=== PATIENT | female | born 1990 | race Caucasian/White ===

== ENCOUNTER 2017-03-16 18:18 | Inpatient (IN) ==
[2017-03-16 19:49] LABS: Amphetamine Screen,Urine Negative ng/mL (Cutoff=1000); Barbiturate Screen,Urine Negative ng/mL (Cutoff=200); Benzodiazepines Screen,Urine Negative ng/mL (Cutoff=200); Cannabinoid Screen,Urine Negative ng/mL (Cutoff = 50); Cocaine Screen,Urine Negative ng/mL (Cutoff= 300); Opiate Screen,Urine Negative ng/mL (Cutoff=300); Phencyclidine Screen,Urine Negative ng/mL (Cutoff=25)
[2017-03-16 19:57] LABS: Basophils # 0.1 K/mcL (0.0-0.2); Basophils % 0.6 %; Eosinophils # 0.1 K/mcL (0.0-0.6); Eosinophils % 0.8 %; Hematocrit 41.8 % (35.3-44.9); Immature Granulocytes % 0.9 % (0-4); Lymphocytes # 2.9 K/mcL (0.6-4.6); Lymphocytes % 22.6 %; Mean Corpuscular HGB Conc 31.1 g/dL (31.6-35.5); Mean Corpuscular Hemoglobin 25.3 pg (28.0-33.3); Mean Corpuscular Volume 81.5 fL (83.0-100.0); Mean Platelet Volume 10.4 fL (9.4-12.4); Monocytes # 0.6 K/mcL (0.0-1.3); Monocytes % 4.9 %; Neutrophils # 8.9 K/mcL (1.6-8.9); Platelet Count 338 K/mcL (140-400); Red Blood Count 5.13 M/mcL (3.82-4.97); Red Cell Distribution Width 15.9 % (11.5-14.5); Segmented Neutrophils % 70.2 %
[2017-03-16 20:08] LABS: Acetaminophen < 1.0 mcg/mL (10-30); BUN/Creatinine Ratio 9 (6-26); Blood Urea Nitrogen 7 mg/dL (7-20); Carbon Dioxide 23 mEq/L (19-29); Chloride 110 mEq/L (98-109); Ethanol < 10 mg/dL (0-10); Glucose 109 mg/dL (70-99); Osmolality,Calculated 287 (280-300); Potassium 3.4 mEq/L (3.5-4.5); Salicylate < 5.0 mg/dL (15-30); Sodium 139 mEq/L (136-145); eGFR For African Americans > 60 (> 60); eGFR For Non-African Americans > 60 (> 60)
--- NOTE | 2017-03-16 21:39 | Emergency Department Note ---
Disposition Clinical Impression: Suicidal ideations Disposition: Home, Self-Care Condition: Good Referrals: NO,PCP [Primary Care Provider] - Forms: ED Satisfaction Letter General Adult HPI - General Chief complaint: ED Psychiatric Symptoms Stated complaint: SI Time Seen by Provider: 03/16/17 18:38 Source: patient Limitations: no limitations Nursing Notes Reviewed: Yes Vital Signs Reviewed: Yes - History of Present Illness HPI Narrative: This is a 26-year-old female with a history of ongoing psychiatric problems. She recently changed her psychiatric medications including increasing her dose of Prozac and starting with 2 day and now has increasing suicidal ideations. She has a plan of cutting herself at home. She has had self-injurious behavior in the past. She has no ingestion currently. She is not intoxicated. Her affect is normal. She is cooperative. Pain Scale: 0 - Related Data Previous Rx's Medication Instructions Recorded Ondansetron ODT [Zofran ODT] 4 mg SL Q8HR #20 tab.rapdis 11/11/15 Allergies Allergy/AdvReac Type Severity Reaction Status Date / Time No Known Allergies Allergy Verified 11/11/15 11:23 All systems ED: reviewed and negative except as stated. Past Medical History - Past Medical History Medical history: Reports: no medical history Psychiatric history: Reports: anxiety, bipolar, depression [employer] HISTORY history: Reports: other - Social History Smoking Status: Never smoker Smokeless Tobacco Status: No Alcohol use: Reports: none Drug use: Reports: none Physical Exam - General Limitations: no limitations General appearance: alert - Head Head exam: atraumatic - Eye Eye exam: Present: normal appearance - ENT ENT exam: normal exam - Neck Neck exam: Present: normal inspection, full ROM - Chest Chest inspection: Present: normal inspection - Respiratory Respiratory exam: Present: normal lung sounds bilaterally - Cardiovascular Cardiovascular exam: Present: regular rate, normal rhythm - Abdominal Exam Abdominal exam: Present: soft, Non-Tender - Extremities Exam Extremities exam: Present: normal inspection, full ROM - Expanded Lower Extremity Exam Hip/Pelvis exam: Present: normal inspection, full ROM Upper leg exam: Present: normal inspection, full ROM Knee exam: Present: normal inspection, full ROM Lower leg exam: Present: normal inspection, full ROM Ankle exam: Present: normal inspection, full ROM Foot/toe exam: Present: normal inspection, full ROM Gait: observed and normal - Back Exam Back exam: Present: normal inspection - Neurological Exam Neurological exam: Present: alert, oriented X3, CN II-XII intact - Psychiatric Psychiatric exam: Present: normal affect, normal mood - Skin Skin exam: Present: warm, dry Course Vital Signs Temperature 98.6 F 03/16/17 18:20 Pulse Rate 110 03/16/17 18:20 Respiratory Rate 18 03/16/17 18:20 Blood Pressure 147/89 03/16/17 18:20 O2 Sat by Pulse Oximetry 97 03/16/17 18:20 Temperature 98.6 F 03/16/17 18:20 Pulse Rate 110 03/16/17 18:20 Respiratory Rate 18 03/16/17 18:20 Blood Pressure 147/89 03/16/17 18:20 O2 Sat by Pulse Oximetry 97 03/16/17 18:20 Oxygen Delivery Oxygen Delivery Room Air Medical Decision Making - Medical Records Medical records reviewed: Yes I reviewed the patient's medical records. - Lab Data Lab results reviewed: Yes I reviewed the patient's lab results. Result diagrams: 03/16/17 19:46 03/16/17 19:46 Lab Results 03/16/17 03/16/17 03/16/17 Range/Units 19:21 19:46 19:46 WBC 12.7 H (4.3-11.1) K/mcL RBC 5.13 H (3.82-4.97) M/mcL Hgb 13.0 (11.5-15.4) g/dL Hct 41.8 (35.3-44.9) % MCV 81.5 L (83.0-100.0) fL MCH 25.3 L (28.0-33.3) pg MCHC 31.1 L (31.6-35.5) g/dL RDW 15.9 H (11.5-14.5) % Plt Count 338 (140-400) K/mcL MPV 10.4 (9.4-12.4) fL Immature Gran % 0.9 (0-4) % Seg Neutrophils % 70.2 % Lymphocytes % 22.6 % Monocytes % 4.9 % Eosinophils % 0.8 % Basophils % 0.6 % Neutrophils # 8.9 (1.6-8.9) K/mcL Lymphocytes # 2.9 (0.6-4.6) K/mcL Monocytes # 0.6 (0.0-1.3) K/mcL Eosinophils # 0.1 (0.0-0.6) K/mcL Basophils # 0.1 (0.0-0.2) K/mcL Sodium 139 (136-145) mEq/L Potassium 3.4 L (3.5-4.5) mEq/L Chloride 110 H (98-109) mEq/L Carbon Dioxide 23 (19-29) mEq/L BUN 7 (7-20) mg/dL Creatinine 0.78 (0.57-1.11) mg/dL Est GFR ( Amer) > 60 (> 60) Est GFR (Non-Af Amer) > 60 (> 60) BUN/Creatinine Ratio 9 (6-26) Glucose 109 H (70-99) mg/dL Calculated Osmolality 287 (280-300) Calcium 9.0 (8.6-10.8) mg/dL Salicylates < 5.0 L (15-30) mg/dL Urine Opiates Screen Negative (Qggiwi=841) ng/mL Acetaminophen < 1.0 L (10-30) mcg/mL Ur Barbiturates Screen Negative (Qjgqgp=278) ng/mL Ur Phencyclidine Scrn Negative (Cutoff=25) ng/mL Ur Amphetamines Screen Negative (Yhzhsq=7015) ng/mL U Benzodiazepines Scrn Negative (Mtovbr=511) ng/mL Urine Cocaine Screen Negative (Cutoff= 300) ng/mL U Marijuana (THC) Screen Negative (Cutoff = 50) ng/mL Ethyl Alcohol < 10 (0-10) mg/dL
[2017-03-16] MEDS ORDERED: Mag Hydrox/Al Hydrox/Simeth 30 ML UDC PO PRN (23:22)
[2017-03-16] MEDS ORDERED: MOM Conc 10 ML UD.LIQ PO PRN (23:22)
[2017-03-16] MEDS ORDERED: Acetaminophen 325 MG TABLET PO PRN (23:22)
[2017-03-16] MEDS ORDERED: *HR* LORazepam 2 MG/ML VIAL IM PRN (23:22)
[2017-03-16] MEDS ORDERED: traZODone 50 MG TABLET PO PRN (23:22)
[2017-03-16] MEDS ORDERED: *HR* LORazepam 1 MG TABLET PO PRN (23:22)
[2017-03-16] MEDS ORDERED: Haloperidol Lactate 5 MG/ML VIAL IM PRN (23:22)
[2017-03-16] MEDS ORDERED: *HR* LORazepam 0.5 MG TABLET PO PRN (23:24)
[2017-03-17] MEDS: Topiramate 25 MG TABLET PO SCH ×3 (08:11→20:44)
--- NOTE | 2017-03-17 09:54 | Psychiatry History & Physical ---
Date of Encounter: 03/17/17 Time of Encounter: 09:30 History of Present Illness Patient Stated Chief Complaint: Suicidal ideation Medicare Admission Attestation: For traditional Medicare patients the provided hospital inpatient services are reasonable and necessary and in the case of services not specified as inpatient -only under 42 CFR 419.22 (n), that they are appropriately provided as inpatient services in accordance 42 CFR 412.3. For Critical [facility] the patient may reasonably be expected to be discharged or transferred to a hospital within 96 hours after admission to the Critical [facility] Hospital. Admitted From: Emergency Dept History of Present Illness: Ms. Sibley is a 26 year old female admitted from the emergency department for having suicidal ideation. Patient reports she had recent medication changes her Prozac was increased from 20-40 and look toward was added patient response to medication changes with increasing depression and irritability and having suicidal thoughts. Patient is under care at [facility] for therapy and medication management. Patient has been treated for depression and bipolar disorder since age 20, her medication was prescribed by PCP and she was seen by a psychologist or therapist. Patient reports increased irritability more swings and increasing anxiety and having suicidal thoughts. She denies having any problem with sleep. 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 She denies any use of alcohol drugs. Family history is positive for mother's bipolar. Past Med Surg Social Fam HX - Past Medical History Medical history: no medical history - Past Psychiatric History Psychiatric history: Reports: anxiety, bipolar. Denies: previous psychiatric hospitalization - Social History Smoking Status: Never smoker Smokeless Tobacco Status: No Alcohol use: none Drug use: none Medications & Allergies Ergocalciferol (VITAMIN D2) [Vitamin D2] 1.25 mg PO QWEEK 03/16/17 [History] FLUoxetine HCl [Fluoxetine HCl] 40 mg PO DAILY 03/16/17 [History] LORazepam [Ativan] 0.5 mg PO DAILY 03/16/17 [History] Lurasidone [Latuda] 20 mg PO DAILY 03/16/17 [History] Metformin HCl [Metformin HCl ER] 1,000 mg PO QPM 03/16/17 [History] Topiramate [Topamax] 50 mg PO TID 03/16/17 [History] Allergies No Known Allergies Allergy (Verified 11/11/15 11:23) Review of Systems Psychiatric: Reports: depression, suicidal ideation, irritability, mood swings Mental Status Exam Patient orientation: Yes Person, Yes Time, Yes Place Level of alertness: Alert Patient appearance: Appropriate, Well Groomed, Obese Behavior: calm, cooperative, anxious Psychomotor activity: Normal Eye contact: Maintains Eye Contact Mood description: Anxious, Labile Affect description: congruent with mood, labile, anxious Speech pattern: Normal rate, Normal rhythm, Normal tone Speech volume: Normal Thought process: Linear, Goal Oriented Thought content: No Suicidal ideation, No Homicidal ideation, No Overt delusions Perceptual disturbances: No Auditory hallucinations, No Visual hallucinations Attention span: Capable of Focused Attention Memory description: Grossly Intact Patient reliability: Reliable Historian Intelligence estimate: Average Judgment: Limited Insight: Partial Results - Vital Signs Vital signs: Temp Pulse Resp BP Pulse Ox 98.2 F 75 18 128/79 97 03/17/17 09:00 03/17/17 09:00 03/17/17 09:00 03/17/17 09:00 03/16/17 18:20 - Labs Labs: Laboratory Last Values WBC 12.7 K/mcL (4.3-11.1) H 03/16/17 19:46 RBC 5.13 M/mcL (3.82-4.97) H 03/16/17 19:46 Hgb 13.0 g/dL (11.5-15.4) 03/16/17 19:46 Hct 41.8 % (35.3-44.9) 03/16/17 19:46 MCV 81.5 fL (83.0-100.0) L 03/16/17 19:46 MCH 25.3 pg (28.0-33.3) L 03/16/17 19:46 MCHC 31.1 g/dL (31.6-35.5) L 03/16/17 19:46 RDW 15.9 % (11.5-14.5) H 03/16/17 19:46 Plt Count 338 K/mcL (140-400) 03/16/17 19:46 MPV 10.4 fL (9.4-12.4) 03/16/17 19:46 Immature Gran % 0.9 % (0-4) 03/16/17 19:46 Seg Neutrophils % 70.2 % 03/16/17 19:46 Lymphocytes % 22.6 % 03/16/17 19:46 Monocytes % 4.9 % 03/16/17 19:46 Eosinophils % 0.8 % 03/16/17 19:46 Basophils % 0.6 % 03/16/17 19:46 Neutrophils # 8.9 K/mcL (1.6-8.9) 03/16/17 19:46 Lymphocytes # 2.9 K/mcL (0.6-4.6) 03/16/17 19:46 Monocytes # 0.6 K/mcL (0.0-1.3) 03/16/17 19:46 Eosinophils # 0.1 K/mcL (0.0-0.6) 03/16/17 19:46 Basophils # 0.1 K/mcL (0.0-0.2) 03/16/17 19:46 Sodium 139 mEq/L (136-145) 03/16/17 19:46 Potassium 3.4 mEq/L (3.5-4.5) L 03/16/17 19:46 Chloride 110 mEq/L (98-109) H 03/16/17 19:46 Carbon Dioxide 23 mEq/L (19-29) 03/16/17 19:46 BUN 7 mg/dL (7-20) 03/16/17 19:46 Creatinine 0.78 mg/dL (0.57-1.11) 03/16/17 19:46 Est GFR ( Amer) > 60 (> 60) 03/16/17 19:46 Est GFR (Non-Af Amer) > 60 (> 60) 03/16/17 19:46 BUN/Creatinine Ratio 9 (6-26) 03/16/17 19:46 Glucose 109 mg/dL (70-99) H 03/16/17 19:46 Calculated Osmolality 287 (280-300) 03/16/17 19:46 Calcium 9.0 mg/dL (8.6-10.8) 03/16/17 19:46 Salicylates < 5.0 mg/dL (15-30) L 03/16/17 19:46 Urine Opiates Screen Negative ng/mL (Juanza=143) 03/16/17 19:21 Acetaminophen < 1.0 mcg/mL (10-30) L 03/16/17 19:46 Ur Barbiturates Screen Negative ng/mL (Scfaqn=005) 03/16/17 19:21 Ur Phencyclidine Scrn Negative ng/mL (Cutoff=25) 03/16/17 19:21 Ur Amphetamines Screen Negative ng/mL (Gjhwvw=8041) 03/16/17 19:21 U Benzodiazepines Scrn Negative ng/mL (Mgnkof=423) 03/16/17 19:21 Urine Cocaine Screen Negative ng/mL (Cutoff= 300) 03/16/17 19:21 U Marijuana (THC) Screen Negative ng/mL (Cutoff = 50) 03/16/17 19:21 Ethyl Alcohol < 10 mg/dL (0-10) 03/16/17 19:46 Assessment and Plan (1) Bipolar disorder, current episode mixed, unspecified Current visit: Yes Status: Acute Plan: Admit inpatient for safety and stabilization, Close observation, Suicide Precautions per unit protocol, Encourage participation in unit milieu, Group Therapy, Monitor sleep, Monitor appetite Additional Plan: Will discontinue latuda. Continue fluoxetine and Topamax, we will monitor. Risks, benefits, side effects, alternatives discussed w/pt: Yes Patient agreeable to treatment: Yes Qualifiers: Current episode severity: unspecified Qualified Code(s): F31.60 - Bipolar disorder, current episode mixed, unspecified
[2017-03-17] MEDS: FLUoxetine 20 MG CAPSULE PO SCH (10:42)
[2017-03-17] MEDS ORDERED: *HR* Metformin 500 MG TABLET PO SCH (18:00)
[2017-03-18] MEDS: FLUoxetine 20 MG CAPSULE PO SCH (08:32)
[2017-03-18] MEDS: Topiramate 25 MG TABLET PO SCH (08:33)
[2017-03-18 09:29] VITALS: BP 108/66
--- NOTE | 2017-03-18 12:53 | Discharge Summary ---
Date of Encounter: 03/18/17 Time of Encounter: 12:30 Diagnosis - Discharge Diagnosis (1) Bipolar disorder, current episode mixed, unspecified Status: Acute Qualifiers: Current episode severity: unspecified Qualified Code(s): F31.60 - Bipolar disorder, current episode mixed, unspecified Medications - Discharge Medications Prescriptions: FLUoxetine HCl [Fluoxetine HCl] 40 mg PO DAILY #30 capsule Topiramate [Topamax] 50 mg PO TID #90 tablet Ergocalciferol (VITAMIN D2) [Vitamin D2] 50,000 unit PO QWEEK 03/16/17 [History] Metformin HCl [Metformin HCl ER] 1,000 mg PO QPM 03/16/17 [History] Meclizine HCl [Verticalm] 25 mg PO TID PRN 03/17/17 [History] FLUoxetine HCl [Fluoxetine HCl] 40 mg PO DAILY #30 capsule 03/18/17 [Rx] Topiramate [Topamax] 50 mg PO TID #90 tablet 03/18/17 [Rx] Allergies No Known Allergies Allergy (Verified 03/17/17 11:37) Provider Date of admission: 03/16/17 22:18 Primary care physician: PCP NO Discharging clinician: Logan Ward Assessment and Plan - Patient/Caregiver Discharge Instructions Activity: resume usual activities as tolerated Diet: regular diet - Follow up Plan Follow up with: [facility] [Outside] - 04/01/17 1:00 pm (The above appointment is Vicenta Koo for counseling. You will also see Aracely Haque, psychiatric provider, on 04/04/17 at 2:00pm in the same office. Please arrive 10 minutes early for all appointments to complete the check-in process. ) Functional capacity at discharge: independent ambulation Overall status at discharge: Stable Disposition: Home, Self-Care Hospital Course Hospital course: Ms. Sibley is a 26 year old female admitted for suicidal ideation and problem with her medication. For details of admission please see H&P On the units patient medication were evaluated, Lurasidone was discontinued. Fluoxetine continued, and Topamax was increased to 50 mg 3 times daily. Patient reported improved sleep, no more swings or irritability, she reported feeling happy. She denies any suicidal ideation and was interested in discharge. On discharge she was medically stable and denied any side effects from medication and was future oriented. Discharge follow-up was reviewed by the mental health social worker. - Time Spent with Patient Total time spent providing and/or coordinating discharge services: Greater than 30 minutes Quality - Multiple Antipsychotics Patient discharged on 2 or more antipsychotic medications: No Procedures - Procedures Procedures: Medication Management, Crisis Stabilization, Supportive Therapy, Group Therapy, Psychoeducational Therapy
== END 2017-03-18 14:45 | disposition home or self-care (01) | DRG 753 ==
LOC: EMEROO 18:18 → 1ANU 22:00
PROVIDERS: ADMIT Psychiatry & Neurology Psychiatry; ATTEND Psychiatry & Neurology Psychiatry